=== PATIENT | female | born 1925 | race Caucasian/White ===

== ENCOUNTER → 2016-08-22 | Outpatient (CLI) | payer MEDICARE, BC ==
[~2016-08-22] MED LIST: ASPIRIN EC81 MG PO; EX-LAX15 MG PO; HUMIBID LA (MU600 MG PO; K-TAB ER20 MEQ PO; LASIX20 MG PO; LOPRESSOR12.5 MG/0. PO; MIRALAX17 GM PO; NORCO 5-325 MG1 TAB PO; NORVASC2.5 MG PO; PRILOSEC20 MG PO; PROBIOTIC1 EAC1 PO; SENOKOT S (S1 TABLET PO
[2016-08-22 14:12] LABS: BASOPHIL # 0.1 K/uL (0.0-0.2); BASOPHIL % 0.8 %; EOSINOPHIL # 0.1 K/uL (0.0-0.5); EOSINOPHIL % 1.7 %; HEMATOCRIT 44.9 % (30.0-46.0); HEMOGLOBIN 14.1 g/dL (10.0-15.0); IMMATURE GRANULOCYTE % 0.3 %; LYMPHOCYTE # 1.8 K/uL (0.8-4.0); LYMPHOCYTE % 27.8 %; MCH 30.1 pg (27.0-34.0); MCHC 31.4 gm/dL (32.0-36.5); MCV 95.7 fl (83.0-98.0); MONOCYTE # 0.6 K/uL (0.0-1.0); MONOCYTE % 8.8 %; MPV 11.1 fl (9.4-12.4); NEUTROPHIL # (ANC) 3.9 K/uL (1.8-7.8); NEUTROPHIL % 60.6 %; NRBC % 0 /100WBC (0-0.00); PLATELET COUNT 199 K/uL (150-450); RBC 4.69 M/uL (3.00-5.00); RDW-CV 12.9 % (11.9-14.6); WBC 6.4 K/uL (4.0-11.0)
[2016-08-22 14:26] LABS: ANION GAP 10.4 (10.0-19.0); BLOOD UREA NITROGEN 15 mg/dL (6-24); CALCIUM 8.6 mg/dL (8.5-10.5); CHLORIDE 104 mMol/L (96-110); CO2 32 mMol/L (22-32); CPK 40 IU/L (21-215); CREATININE 0.8 mg/dL (0.5-1.1); ESTIMATED GFR (MDRD EQUATION) > 60; POTASSIUM 3.4 mMol/L (3.7-5.1); SODIUM 143 mMol/L (135-145)
== END | disposition disaster alternative care site (69) ==
LOC: LNHI 14:08
PROVIDERS: Internal Medicine Interventional Cardiology
DX: I25.10 Atherosclerotic heart disease of native coronary artery without angina pectoris (principal); I10 Essential (primary) hypertension; R07.89 Other chest pain

== ENCOUNTER 2016-11-25 16:10 | Emergency (ER) | payer MEDICARE, BC ==
--- NOTE | ~2016-11-25 | ENPV ---
Vascular Lower Extremities DVT Study Procedure Demographics Patient Name CALVIN SANDOVAL Date of Study 11/25/2016 Patient Number [id number] Gender Female Date of 1925 Age 89 Visit Number [id number] Height Accession Number [id number] Weight Room Number BSA BMI Referring Rickey Roque MD Physician Physician Physician Ordering Tatum Alcocer MD Setter Helper Physician Pediatric Hospitalist Rhonda [facility], [facility] Conclusions Summary No evidence of deep vein thrombosis or superficial thrombophlebitis in the lower extremities bilaterally. Procedure Type of Study: Veins:Lower Extremities DVT Study, Venous Duplex Lower Extremity Bilateral. Indications for Study:Pain in Limb and Swelling of Limb. Appropriate Use Criteria:9 Allergies - Penicillin. Patient Status:STAT. Study Location:ER. Technical Quality:Adequate visualization. Velocities are measured in cm/s ; Diameters are measured in cm Right Lower Extremities DVT Study Measurements Right 2D and Doppler Measurements + + + + +------+------+ + !Location !Visualized!Compressibility!Thrombosis!Signal!Reflux!Reflux ! ! ! ! ! ! ! !(sec) ! + + + + +------+------+ + !GSV Thigh !Yes !Yes !None !Phasic! ! ! + + + + +------+------+ + !Common !Yes !Yes !None !Phasic! ! ! !Femoral ! ! ! ! ! ! ! + + + + +------+------+ + !Prox !Yes !Yes !None !Phasic! ! ! !Femoral ! ! ! ! ! ! ! + + + + +------+------+ + !Mid Femoral!Yes !Yes !None !Phasic! ! ! + + + + +------+------+ + !Dist !Yes !Yes !None !Phasic! ! ! !Femoral ! ! ! ! ! ! ! + + + + +------+------+ + !Popliteal !Yes !Yes !None !Phasic! ! ! + + + + +------+------+ + !Gastroc !Yes !Yes !None !Phasic! ! ! + + + + +------+------+ + !PTV !Yes !Yes !None ! ! ! ! + + + + +------+------+ + !Peroneal !Yes !Yes !None ! ! ! ! + + + + +------+------+ + Left Lower Extremities DVT Study Measurements Left 2D and Doppler Measurements + + + + +------+------+ + !Location !Visualized!Compressibility!Thrombosis!Signal!Reflux!Reflux ! ! ! ! ! ! ! !(sec) ! + + + + +------+------+ + !GSV Thigh !Yes !Yes !None !Phasic! ! ! + + + + +------+------+ + !Common !Yes !Yes !None !Phasic! ! ! !Femoral ! ! ! ! ! ! ! + + + + +------+------+ + !Prox !Yes !Yes !None !Phasic! ! ! !Femoral ! ! ! ! ! ! ! + + + + +------+------+ + !Mid Femoral!Yes !Yes !None !Phasic! ! ! + + + + +------+------+ + !Dist !Yes !Yes !None !Phasic! ! ! !Femoral ! ! ! ! ! ! ! + + + + +------+------+ + !Popliteal !Yes !Yes !None !Phasic! ! ! + + + + +------+------+ + !Gastroc !Yes !Yes !None !Phasic! ! ! + + + + +------+------+ + !PTV !Yes !Yes !None ! ! ! ! + + + + +------+------+ + !Peroneal !Yes !Yes !None ! ! ! ! + + + + +------+------+ + Signature dtt: KIRA ANNE dtannie: 11/25/16 1649 Physician Self Edit
--- NOTE | ~2016-11-25 | ER ---
PATIENT'S NAME: CALVIN SANDOVAL [facility] AGE: 89 Y [address] ROOM: [place] [address] LOCATION: ED ADMIT DATE: 11/25/2016 ER/Outpatient Report DISCHARGE DATE: 11/25/2016 FAMILY PHYSICIAN: Shanon Lang DO ATTENDING PHYSICIAN: Angelo Winn Time of Arrival: 1610 hours. Time of Evaluation: 1615 hours. CHIEF COMPLAINT: Leg swelling. HISTORY OF PRESENT ILLNESS: The patient is an 89-year-old female who presents to the emergency department today with a chief complaint of leg swelling. She reports this started 2 to 3 days prior to arrival. It has progressively worsened. She is having some pain in her left leg. She denies any chest pain. Does report that she has chronic shortness of breath from COPD. Denies any nausea or vomiting. No diarrhea or constipation. She reports the pain is currently 4/10 in severity. It is sharp. It is worse in the left leg, however, she does have some pain in the right leg as well. PAST MEDICAL HISTORY: COPD, coronary artery disease, questionable heart failure, gastroesophageal reflux disease, osteoporosis, chronic UTI, psoriasis, angina, scoliosis, GERD and constipation. PAST SURGICAL HISTORY: Coronary artery bypass grafting, open cholecystectomy, cystoscopy, tonsillectomy, appendectomy. SOCIAL HISTORY: The patient denies any tobacco, alcohol, or illicit drug use. Quit smoking in 1996, 50-pack year smoking history. ALLERGIES: MACROBID, PENICILLIN, PAXIL. MEDICATIONS: Please see list. PRIMARY CARE DOCTOR: Shanon Lang DO in [place]. REVIEW OF SYSTEMS: PATIENT'S NAME: CALVIN SANDOVAL [facility] AGE: 89 Y [address] ROOM: [place] [address] LOCATION: ED ADMIT DATE: 11/25/2016 ER/Outpatient Report DISCHARGE DATE: 11/25/2016 FAMILY PHYSICIAN: Shanon Lang DO ATTENDING PHYSICIAN: Angelo Winn All systems are reviewed by myself and are negative with the exception of those discussed in HPI and past medical history. PHYSICAL EXAMINATION: VITAL SIGNS: Weight 75 kg. Blood pressure 176/77, pulse 68, respiratory rate 16, temperature 97.4, oxygen saturation 91% on room air. GENERAL: The patient is an 89-year-old female, appears stated age, in no acute distress at this time. HEENT: Head: Normocephalic, atraumatic. Pupils are equal, round, and reactive to light and accommodation. Extraocular motions are intact. NECK: Supple. There is no nuchal rigidity. CARDIOVASCULAR: Regular rate and rhythm. No murmurs, rubs, or gallops. LUNGS: Clear to auscultation bilaterally. No wheezes, rales, or rhonchi. ABDOMEN: Soft, nontender, and nondistended. No rebound, rigidity, or guarding. MUSCULOSKELETAL: The patient moves all 4 extremities. Ambulates the room with steady gait. SKIN: With 3+ pretibial edema in bilateral lower extremities. LABORATORY DATA AND X-RAYS: Labs and x-rays are obtained. EKG is obtained, is interpreted by myself, shows sinus rhythm with a rate of 63, normal axis, WA interval 245, QTc of 457, no ST elevation, ST depression, T-wave inversions, V1, V2, aVL. D-dimer 0.55. Venous Doppler is negative. CBC is normal. CMP is unremarkable. LFTs normal. Magnesium is normal. CK is normal. CK-MB is normal. Troponin is normal. LFTs are normal. BNP is 1080. Coags are normal. Two-view chest x-ray is obtained, is interpreted by myself shows no acute process. IMPRESSION: 1. Acute exacerbation of congestive heart failure. 2. Peripheral edema. 3. Initial visit. EMERGENCY DEPARTMENT COURSE: The patient brought back to the examination room. Seen and evaluated by myself. Laboratory analysis and imaging are obtained as described above. The patient's legs are negative for deep vein thrombosis. The patient does not have any chest pain. She does not have any worsening shortness of breath that she normally has. IV was established. The patient was given 60 mg of Lasix IV. I have discussed with the patient. I would recommend doubling her dose of Lasix for the next 5 days. She is to follow up with Dr. Lang in 2-3 PATIENT'S NAME: CALVIN SANDOVAL [facility] AGE: 89 Y [address] ROOM: [place] [address] LOCATION: [facility] ADMIT DATE: 11/25/2016 ER/Outpatient Report DISCHARGE DATE: 11/25/2016 FAMILY PHYSICIAN: Shanon Lang DO ATTENDING PHYSICIAN: Angelo Winn. I have discussed return to care instructions including worsening symptoms or any other concerns to return to the emergency department as soon as possible. This does include chest pain, worsening shortness of breath, or any other concerns. The patient is agreeable and daughter is agreeable. They are without further questions at the time of disposition. DISPOSITION: The patient discharged home in good condition. ANGELO WINN DO KJR/vannessal /[id number] d: 11/26/16 0659 t: 12/06/16 0650, OUTPATIENT REPORT
[2016-11-25 16:41] LABS: BASOPHIL # 0.1 K/uL (0.0-0.2); BASOPHIL % 1.1 %; EOSINOPHIL # 0.2 K/uL (0.0-0.5); EOSINOPHIL % 3.2 %; HEMATOCRIT 41.3 % (30.0-46.0); HEMOGLOBIN 13.7 g/dL (10.0-15.0); IMMATURE GRANULOCYTE % 0.2 %; LYMPHOCYTE # 2.1 K/uL (0.8-4.0); LYMPHOCYTE % 33.2 %; MCH 31.1 pg (27.0-34.0); MCHC 33.2 gm/dL (32.0-36.5); MCV 93.7 fl (83.0-98.0); MONOCYTE # 0.6 K/uL (0.0-1.0); MONOCYTE % 9.7 %; MPV 11.3 fl (9.4-12.4); NEUTROPHIL # (ANC) 3.3 K/uL (1.8-7.8); NEUTROPHIL % 52.6 %; NRBC % 0 /100WBC (0-0.00); PLATELET COUNT 205 K/uL (150-450); RBC 4.41 M/uL (3.00-5.00); RDW-CV 12.6 % (11.9-14.6); WBC 6.3 K/uL (4.0-11.0)
[2016-11-25 17:03] LABS: ALBUMIN 3.5 gm/dL (3.5-5.0); ALK PHOS 70 IU/L (33-138); ALT 15 IU/L (12-78); ANION GAP 9.8 (10.0-19.0); AST 18 IU/L (10-40); BLOOD UREA NITROGEN 16 mg/dL (6-24); CHLORIDE 101 mMol/L (96-110); CO2 33 mMol/L (22-32); CPK 47 IU/L (21-215); ESTIMATED GFR (MDRD EQUATION) 52; MAGNESIUM 2.4 mg/dL (1.8-2.6); POTASSIUM 3.8 mMol/L (3.7-5.1); SODIUM 140 mMol/L (135-145); TOTAL BILIRUBIN 0.3 mg/dL (0.0-1.5); TOTAL PROTEIN 7.4 g/dL (6.0-8.4)
[2016-11-25 17:16] LABS: PROTIME 9.4 SECONDS (9.8-11.4); PTT 27 SECONDS (25-32)
== END 2016-11-25 17:44 | disposition disaster alternative care site (69) ==
LOC: GMED 16:10
PROVIDERS: Emergency Medicine
DX: I50.9 Heart failure, unspecified (principal); J44.9 Chronic obstructive pulmonary disease, unspecified; K21.9 Gastro-esophageal reflux disease without esophagitis; I25.119 Atherosclerotic heart disease of native coronary artery with unspecified angina pectoris; M81.0 Age-related osteoporosis without current pathological fracture; Z87.440 Personal history of urinary (tract) infections; Z87.891 Personal history of nicotine dependence; Z88.0 Allergy status to penicillin; Z88.1 Allergy status to other antibiotic agents; Z88.8 Allergy status to other drugs, medicaments and biological substances; Z79.82 Long term (current) use of aspirin; Z79.899 Other long term (current) drug therapy; Z90.49 Acquired absence of other specified parts of digestive tract; Z90.89 Acquired absence of other organs; Z95.1 Presence of aortocoronary bypass graft; Z98.890 Other specified postprocedural states
CPT/HCPCS: J1940